=== PATIENT | female | born 1975 | race Caucasian/White ===

== ENCOUNTER 2021-11-30 23:58 | Observation (INO) | payer OTHER ==
[2021-12-01 01:10] LABS: #Basophils 0.1 thou/uL (0.0-0.2); #Eosinphils 0.1 thou/uL (0.0-0.7); #Lymphocytes 1.2 thou/uL (1.20-3.40); #Monocytes 0.5 thou/uL (0.11-0.59); #Neutrophils 6.2 thou/uL (1.40-6.50); %Eosinophils 0.9 % (0.0-10.0); %Lymphocytes 14.4 % (21.0-51.0); %Monocytes 6.4 % (0.0-10.0); %Neutrophils 77.4 % (42.0-75.0); Mean Corpuscular HGB CONC 33.5 g/dL (32.0-36.0); Mean Corpuscular Volume 92.6 fL (78.0-98.0); Mean Platelet Volume 8.1 fL (7.4-10.4); Platelet Count 220 thou/uL (130-400); RBC Distribution Width 11.9 % (11.5-14.5); Red Blood Cell (RBC) Count 4.52 mill/uL (4.20-5.40); White Blood Cell (WBC) Count 7.9 thou/uL (4.8-10.8)
[2021-12-01] MEDS ORDERED: HYDROcodone/Acetaminophen 5/325 mg Tablet ONE (02:04)
[2021-12-01] MEDS ORDERED: traMADol HCl 50 MG TAB ONE (02:10)
[2021-12-01] MEDS ORDERED: Ondansetron PF 4 MG/2 ML Vial ONE (02:10)
[2021-12-01 04:29] VITALS: BMI 32.6
[2021-12-01] MEDS ORDERED: Bisacodyl 5 MG TAB PO PRN (07:22)
[2021-12-01] MEDS ORDERED: Senokot S 8.6-50 MG TAB PO PRN (07:22)
[2021-12-01] MEDS ORDERED: Bisacodyl 10 MG SUPP PR PRN (07:22)
[2021-12-01] MEDS ORDERED: hydrALAZINE 20 MG/ML VIAL SLOW IVP PRN (07:26)
[2021-12-01] MEDS ORDERED: Levothyroxine Sodium 125 MCG TAB PO SCH (07:30)
[2021-12-01] MEDS ORDERED: traMADol HCl 50 MG TAB PO PRN (08:55)
[2021-12-01] MEDS ORDERED: Benzocaine 20% Spray 60 ML CAN PO SCH (09:00)
[2021-12-01] MEDS ORDERED: Amoxicillin/Potassium Clav 875 MG TAB PO SCH (09:45)
[2021-12-01 09:52] LABS: Hemoglobin A1c 5.3 % (4.0-6.0)
[2021-12-01 09:53] LABS: PTT 26.9 sec (22.9-36.1)
[2021-12-01] MEDS ORDERED: Amlodipine 5 MG TAB PO SCH (10:00)
[2021-12-01 10:03] LABS: ALT (SGPT) 13 U/L (8-55); AST (SGOT) 15 U/L (5-34); Albumin 4.5 g/dL (3.5-5.0); Alkaline Phosphatase 54 U/L (40-110); Anion Gap 14 mmol/L (10-20); BUN (Urea Nitrogen) 10 mg/dL (7.0-18.7); Bilirubin, Total 0.6 mg/dL (0.2-1.2); Calc. Creatinine Clearance 119 mL/min (70-130); Carbon Dioxide 21 mmol/L (22-29); Chloride 108 mmol/L (98-107); Estimated GFR 97; Globulin 2.7 g/dL (2.4-3.5); Glucose 161 mg/dL (70-105); Potassium 3.6 mmol/L (3.5-5.1); Protein, Total 7.2 g/dL (6.0-8.3); Sodium 139 mmol/L (136-145)
[2021-12-01] MEDS ORDERED: traMADol HCl 50 MG TAB PO SCH (11:45)
[2021-12-01] MEDS ORDERED: diphenhydrAMINE 25 MG CAP PO SCH (12:30)
[2021-12-01] MEDS ORDERED: Metoclopramide HCl 10 MG/2 ML VIAL IVP SCH (12:30)
[2021-12-01] MEDS ORDERED: Iopamidol-370 76% 500 ML 1 ML ONE (14:10)
[2021-12-01] MEDS ORDERED: Magnesium 2 GM/50 ML(in water) 2 GM in Premix Bag 1 BAG IVPB SCH (15:15)
[2021-12-01] MEDS: Cepastat Lozenges 1 LOZ PO PRN ×2 (15:47→20:32)
[2021-12-01] MEDS: Acetaminophen 325 MG TAB PO PRN ×2 (15:52→20:31)
[2021-12-01] MEDS: traMADol HCl 50 MG TAB PO PRN (17:53)
[2021-12-01] MEDS: Famotidine 20 MG TAB PO SCH (20:31)
[2021-12-01] MEDS: Loratadine 10 MG TAB PO SCH (20:31)
[2021-12-01] MEDS: Amoxicillin/Potassium Clav 875 MG TAB PO SCH (20:31)
[2021-12-02] MEDS: Levothyroxine Sodium 125 MCG TAB PO SCH (05:13)
[2021-12-02] MEDS: traMADol HCl 50 MG TAB PO PRN ×3 (05:14→19:59)
[2021-12-02] MEDS: Acetaminophen 325 MG TAB PO PRN ×3 (05:14→20:00)
[2021-12-02] MEDS: Cepastat Lozenges 1 LOZ PO PRN ×4 (05:23→21:02)
[2021-12-02 07:01] LABS: #Eosinphils 0.3 thou/uL (0.0-0.7); #Lymphocytes 1.9 thou/uL (1.20-3.40); #Monocytes 0.6 thou/uL (0.11-0.59); #Neutrophils 4.2 thou/uL (1.40-6.50); %Basophils 0.4 % (0.0-1.0); %Eosinophils 4.3 % (0.0-10.0); %Lymphocytes 27.2 % (21.0-51.0); %Neutrophils 60.1 % (42.0-75.0); Hemoglobin 13.9 g/dL (12.0-16.0); Mean Corpuscular HGB CONC 32.9 g/dL (32.0-36.0); Mean Corpuscular Hemoglobin 30.9 pg (27.0-31.0); Mean Corpuscular Volume 94.1 fL (78.0-98.0); Mean Platelet Volume 8.2 fL (7.4-10.4); Platelet Count 210 thou/uL (130-400); RBC Distribution Width 12.1 % (11.5-14.5); Red Blood Cell (RBC) Count 4.49 mill/uL (4.20-5.40); White Blood Cell (WBC) Count 6.9 thou/uL (4.8-10.8)
[2021-12-02 07:18] LABS: PTT 27.9 sec (22.9-36.1); Prothrombin Time 12.9 sec (12.0-14.7)
[2021-12-02 07:27] LABS: ALT (SGPT) 13 U/L (8-55); AST (SGOT) 16 U/L (5-34); Albumin 4.3 g/dL (3.5-5.0); Alkaline Phosphatase 47 U/L (40-110); Anion Gap 16 mmol/L (10-20); BUN (Urea Nitrogen) 10 mg/dL (7.0-18.7); Bilirubin, Direct 0.2 mg/dL (0.1-0.3); Bilirubin, Total 0.6 mg/dL (0.2-1.2); Calc. Creatinine Clearance 121 mL/min (70-130); Calcium 8.8 mg/dL (7.8-10.44); Carbon Dioxide 21 mmol/L (22-29); Cardiac Risk 2.2 (Less than 4.5); Chloride 103 mmol/L (98-107); Cholesterol 171 mg/dl (< 200 Desired); Estimated GFR 98; Glucose 120 mg/dL (70-105); HDL Cholesterol 79 mg/dL (>60 Neg Risk); LDL Cholesterol, Calculated 78 mg/dL; Magnesium 1.9 mg/dL (1.6-2.6); Protein, Total 6.8 g/dL (6.0-8.3); Sodium 136 mmol/L (136-145); Triglycerides 69 mg/dL (Less than 150)
[2021-12-02] MEDS ORDERED: Amlodipine 5 MG TAB PO SCH (09:00)
[2021-12-02] MEDS: Amoxicillin/Potassium Clav 875 MG TAB PO SCH ×2 (09:21→19:59)
[2021-12-02] MEDS: Famotidine 20 MG TAB PO SCH ×2 (09:21→20:04)
[2021-12-02] MEDS ORDERED: Fentanyl 100 MCG/2 ML VIAL SLOW IVP PRN ×2 (10:58→15:15)
[2021-12-02] MEDS ORDERED: Ondansetron PF 4 MG/2 ML Vial IVP PRN (17:16)
[2021-12-02] MEDS: Ondansetron ODT 4 MG TAB PO PRN (17:22)
[2021-12-02] MEDS ORDERED: Ondansetron PF 4 MG/2 ML Vial IVP SCH (18:00)
[2021-12-02] MEDS: Amlodipine 5 MG TAB PO SCH (20:00)
[2021-12-02] MEDS: Loratadine 10 MG TAB PO SCH (20:05)
[2021-12-02] MEDS ORDERED: Cyanocobalamin (Vitamin B-12) 1,000 MCG TAB PO SCH (21:00)
[2021-12-02] MEDS ORDERED: Folic Acid 1 MG TAB PO SCH (21:00)
[2021-12-02] MEDS ORDERED: pyridOXINE 50 MG (B6) TAB PO SCH (21:00)
[2021-12-03] MEDS: Levothyroxine Sodium 125 MCG TAB PO SCH (05:22)
[2021-12-03] MEDS: Acetaminophen 325 MG TAB PO PRN (05:22)
[2021-12-03] MEDS: traMADol HCl 50 MG TAB PO PRN (05:22)
[2021-12-03] MEDS: Cepastat Lozenges 1 LOZ PO PRN (05:23)
[2021-12-03] MEDS: Ondansetron ODT 4 MG TAB PO PRN (06:43)
[2021-12-03 07:08] LABS: #Basophils 0.1 thou/uL (0.0-0.2); #Eosinphils 0.3 thou/uL (0.0-0.7); #Lymphocytes 2.4 thou/uL (1.20-3.40); #Monocytes 0.7 thou/uL (0.11-0.59); #Neutrophils 5.4 thou/uL (1.40-6.50); %Basophils 0.9 % (0.0-1.0); %Eosinophils 3.4 % (0.0-10.0); %Lymphocytes 26.7 % (21.0-51.0); %Monocytes 8.1 % (0.0-10.0); Mean Corpuscular HGB CONC 32.5 g/dL (32.0-36.0); Mean Corpuscular Hemoglobin 30.7 pg (27.0-31.0); Mean Corpuscular Volume 94.5 fL (78.0-98.0); Mean Platelet Volume 8.5 fL (7.4-10.4); Platelet Count 237 thou/uL (130-400); RBC Distribution Width 12.2 % (11.5-14.5); Red Blood Cell (RBC) Count 4.87 mill/uL (4.20-5.40); White Blood Cell (WBC) Count 8.9 thou/uL (4.8-10.8)
[2021-12-03 07:41] LABS: Anion Gap 13 mmol/L (10-20); BUN (Urea Nitrogen) 10 mg/dL (7.0-18.7); Calc. Creatinine Clearance 122 mL/min (70-130); Calcium 9.4 mg/dL (7.8-10.44); Carbon Dioxide 26 mmol/L (22-29); Chloride 105 mmol/L (98-107); Estimated GFR 100; Glucose 100 mg/dL (70-105); Potassium 3.8 mmol/L (3.5-5.1); Sodium 140 mmol/L (136-145)
[2021-12-03 07:42] LABS: PTT 27.2 sec (22.9-36.1)
[2021-12-03] MEDS: Famotidine 20 MG TAB PO SCH (08:13)
[2021-12-03] MEDS: Amlodipine 5 MG TAB PO SCH (08:13)
[2021-12-03] MEDS: Amoxicillin/Potassium Clav 875 MG TAB PO SCH (08:13)
[2021-12-03] MEDS ORDERED: Multivit, Therapeutic 1 TAB PO SCH (09:00)
[2021-12-03 09:01] VITALS: BP 148/81; TEMP 98.1
== END 2021-12-03 12:40 | disposition home or self-care (01) ==
LOC: ERS 23:58 → T4-B 12-01 02:37
PROVIDERS: ADMIT Internal Medicine; ATTEND Internal Medicine
DX: R04.0 Epistaxis (principal); D68.8 Other specified coagulation defects; I10 Essential (primary) hypertension; E03.9 Hypothyroidism, unspecified; D47.Z2 Castleman disease; K58.9 Irritable bowel syndrome, unspecified; E66.9 Obesity, unspecified; Z68.32 Body mass index [BMI] 32.0-32.9, adult; Z86.16 Personal history of COVID-19; Z79.890 Hormone replacement therapy; Z88.5 Allergy status to narcotic agent; Z88.6 Allergy status to analgesic agent; Z91.011 Allergy to milk products; Z91.014 Allergy to mammalian meats; Z91.018 Allergy to other foods; Z20.822 Contact with and (suspected) exposure to COVID-19
CPT/HCPCS: 36415; 36430; 70450; 80048; 80053; 80061; 80076; 83036; 83735; 84443; 85025; 85384; 85610; 85730; 86850; 86900; 86901; 96374; 96375; 96376; G0378; J0780; J2405; J2765; J3010; J3475; P9059; Q0162; Q9967; U0003; U0005